=== PATIENT | male | born 1955 | race Caucasian/White ===

== ENCOUNTER → 2017-02-14 | Outpatient (CLI) | payer BC ==
[~2017-02-14] MED LIST: ASPI325T32 PO; ATOR20TA38 PO; CELE200C PO; HYDR-906 PO; TRAM50TA2 PO
--- NOTE | 2017-02-14 10:17 | RADRPT ---
PROCEDURE: XR pelvis/left hip. CLINICAL INDICATION: Hip pain TECHNIQUE: AP pelvis/AP and lateral left hip views performed. COMPARISON: 08/09/2016 FINDINGS: There is a left total hip replacement. There is no evidence of loosening of the prosthesis. No hardw are failure identified. There is moderate right hip osteoarthrosis. This is associated with joint space narrowing, subchondr al sclerosis, subchondral cyst formation and osteophytosis. There is normal osseous mineralization. No fractures or osseous lesions are identified. The soft tissues are unremarkable. IMPRESSION: Left total hip replacement. Moderate right hip osteoarthrosis. RPTAT: [facility] .Bishop Looney MD, MD Date Time Electronically viewed and signed by .Bishop Looney MD, on 02/14/2017 10:17 .B/
== END | disposition home or self-care (01) ==
LOC: HKI 09:26
PROVIDERS: ATTEND Orthopaedic Surgery
DX: Z47.89 Encounter for other orthopedic aftercare (principal); M51.36 Other intervertebral disc degeneration, lumbar region; M54.16 Radiculopathy, lumbar region; Z96.651 Presence of right artificial knee joint; Z96.642 Presence of left artificial hip joint
CPT/HCPCS: 73502; G0463